=== PATIENT | male | born 1990 | race Two or more races ===

== ENCOUNTER 2017-08-29 16:50 | Emergency (ER) | payer MEDICAID, OTHER ==
[~2017-08-29] VITALS: Ht 188 cm; Wt 77.1 kg
[2017-08-29 17:18] VITALS: BP 136/80
== END 2017-08-29 17:07 | disposition left against medical advice (07) ==
LOC: EDBD 16:50 → ER 16:52
DX: R10.9 Unspecified abdominal pain (principal); Z53.21 Procedure and treatment not carried out due to patient leaving prior to being seen by health care provider